=== PATIENT | female | born 1995 | race Caucasian/White ===

== ENCOUNTER 2017-11-13 08:28 | Day surgery (SDC) | payer BC ==
[~2017-11-13] VITALS: Ht 172.7 cm; Wt 72.6 kg
[~2017-11-13 08:28] MED LIST: ALBU90OI INH; AMOCLA600S; AMOX500 PO; CODACE30 PO; COUGH MED W/CODEINE; CRUTCH3 USE; FLUC150A PO; HYDACE5 PO; IBUP600 PO; LEVFLO500 PO; Monodox100 MG PO; NAPR500 PO; OXYACE5T PO; Percocet 5-3251 EACH PO; Prednisone20 MG PO; SERT25; SPACE CHAMBER1 EACH MC; SULTRIDS PO; Ultram50 MG PO; Zofran Odt8 MG SL
[2017-11-13 10:10] LABS: BASOPHILS ABSOLUTE AUTO 0.08 K/mm3 (0.00-0.23); BASOPHILS PERCENT AUTO 1 % (0-2); EOSINOPHILS ABSOLUTE AUTO 0.06 K/mm3 (0.00-0.68); EOSINOPHILS PERCENT AUTO 0 % (0-6); Hematocrit 39.5 % (33.0-51.0); Hemoglobin 13.6 g/dL (11.5-16.0); IMMATURE GRAN ABSOLUTE AUTO 0.06 K/mm3 (0.00-0.10); IMMATURE GRAN PERCENT AUTO 0 % (0-1); LYMPHOCYTES ABSOLUTE AUTO 1.38 K/mm3 (0.84-5.20); LYMPHOCYTES PERCENT AUTO 8 % (21-46); MONOCYTES ABSOLUTE AUTO 0.54 K/mm3 (0.16-1.47); MONOCYTES PERCENT AUTO 3 % (4-13); Mean Corpuscular HGB 31.2 pg (26.0-34.0); Mean Corpuscular HGB Conc 34.4 g/dL (31.5-36.5); Mean Corpuscular Volume 91 fL (80-100); Mean Platelet Volume 10.2 fL (9.1-12.4); NEUTROPHILS ABSOLUTE AUTO 14.24 K/mm3 (1.96-9.15); NEUTROPHILS PERCENT AUTO 87 % (41-73); Platelet Count 424 K/mm3 (150-400); RDW Coefficient Variation 12.8 % (11.7-14.2); RDW Standard Deviation 42.2 fL (35.1-46.3); Red Blood Cell Count 4.36 M/mm3 (3.80-5.20); White Blood Cell Count 16.36 K/mm3 (4.00-11.30)
[2017-11-13 10:25] LABS: Alanine Aminotransfer (ALT/SGP 27 U/L (12-78); Albumin, Blood 4.2 g/dL (3.4-5.0); Albumin/Globulin Ratio 1.1 (0.8-1.8); Alk Phos 45 U/L (50-136); Anion Gap 8 mmol/L (6-16); Aspartate Aminotrans (AST/SGOT 23 U/L (12-37); Bilirubin, Total 0.5 mg/dL (0.1-1.0); Blood Urea Nitrogen 8 mg/dL (8-24); Bun/Creatinine Ratio 13.5 (12.0-20.0); CO2, Blood 25 mmol/L (21-32); Calcium, Blood 9.1 mg/dL (8.5-10.1); Chloride, Blood 106 mmol/L (98-108); Creatinine, Blood 0.59 mg/dL (0.40-1.00); Globulin, Blood 3.9 g/dL (2.2-4.0); Glomerular Filtration Rate >60 (60-); Glucose, Blood 123 mg/dL (70-99); Potassium, Blood 4.1 mmol/L (3.5-5.5); Sodium, Blood 139 mmol/L (136-145); Total Protein, Blood 8.1 g/dL (6.4-8.2)
[2017-11-13] MEDS ORDERED: Percocet 5-3251 EACH PO (17:16)
[2017-11-13] MEDS ORDERED: IBUP800 PO (17:17)
[2017-11-13] MEDS ORDERED: PROM25 PO (17:17)
[2017-11-13] MEDS ORDERED: DOCU100 PO (17:24)
[2017-11-13] MEDS ORDERED: SIME80CH PO (17:24)
== END 2017-11-13 18:10 | disposition home or self-care (01) ==
LOC: ER 08:28 → ORSCMMR 11:49 → SURS 11:49 → ER 11:49 → SURS 12:20 → ORSCMMR 18:10
PROVIDERS: Emergency Medicine; Obstetrics & Gynecology
PROC: 10D17ZZ Extraction of Products of Conception, Retained, Via Natural or Artificial Opening (ICD-10-PCS; principal; 2017-11-13 14:00)
DX: O02.1 Missed abortion (principal)
CPT/HCPCS: 36415; 76801; 80053; 85025; 86900; 86901; 96361; 96374; 96375; 99285; J0295; J1100; J1885; J2060; J2210; J2250; J2405; J3010; J7030; J7120

== ENCOUNTER 2019-07-12 08:14 | Inpatient (IN) | payer SELFPAY ==
[~2019-07-12] VITALS: Ht 160 cm; Wt 83.5 kg
[~2019-07-12 08:14] MED LIST changes: +CYCL10 PO; +DOCU100 PO; +IBUP800 PO; +PROM25 PO; +SIME80CH PO
[2019-07-12] MEDS ORDERED: EXPECTA PRENAT1 EACH PR (09:13)
[2019-07-12] MEDS ORDERED: IRON150C PO (09:13)
[2019-07-12 09:23] LABS: BASOPHILS ABSOLUTE AUTO 0.05 K/mm3 (0.00-0.23); BASOPHILS PERCENT AUTO 0 % (0-2); EOSINOPHILS ABSOLUTE AUTO 0.12 K/mm3 (0.00-0.68); EOSINOPHILS PERCENT AUTO 1 % (0-6); Hematocrit 35.9 % (33.0-51.0); Hemoglobin 12.8 g/dL (11.5-16.0); IMMATURE GRAN ABSOLUTE AUTO 0.14 K/mm3 (0.00-0.10); IMMATURE GRAN PERCENT AUTO 1 % (0-1); LYMPHOCYTES ABSOLUTE AUTO 2.54 K/mm3 (0.84-5.20); LYMPHOCYTES PERCENT AUTO 15 % (21-46); MONOCYTES ABSOLUTE AUTO 0.87 K/mm3 (0.16-1.47); MONOCYTES PERCENT AUTO 5 % (4-13); Mean Corpuscular HGB 31.4 pg (26.0-34.0); Mean Corpuscular HGB Conc 35.7 g/dL (31.5-36.5); Mean Corpuscular Volume 88 fL (80-100); Mean Platelet Volume 9.5 fL (9.1-12.4); NEUTROPHILS ABSOLUTE AUTO 12.73 K/mm3 (1.96-9.15); NEUTROPHILS PERCENT AUTO 77 % (41-73); Platelet Count 631 K/mm3 (150-400); RDW Standard Deviation 38.7 fL (35.1-46.3); Red Blood Cell Count 4.08 M/mm3 (3.80-5.20); White Blood Cell Count 16.45 K/mm3 (4.00-11.30)
--- NOTE | 2019-07-12 17:44 | NUR ---
CONSULT. BABY HAD JUST FINISHED BF AND IS RESTING IN DADS ARMS. INSTRUCT/DEMO SELF EBM AND MOM ABLE TO RETURN DEMO. INSTRUCT IN CHANGES TO EXPECT DURING THE FIRST WEEK WITH BABY AND WITH FEEDINGS AND REFERRED TO BF BROCHURE AND BF BOOKLET FOR PHOTOS AND INFORMATION. QUESTIONS ANSWERED. LOVING WITH BABY.
[2019-07-13 05:51] LABS: BASOPHILS ABSOLUTE AUTO 0.03 K/mm3 (0.00-0.23); BASOPHILS PERCENT AUTO 0 % (0-2); EOSINOPHILS ABSOLUTE AUTO 0.13 K/mm3 (0.00-0.68); EOSINOPHILS PERCENT AUTO 1 % (0-6); Hematocrit 29.4 % (33.0-51.0); IMMATURE GRAN ABSOLUTE AUTO 0.13 K/mm3 (0.00-0.10); IMMATURE GRAN PERCENT AUTO 1 % (0-1); LYMPHOCYTES ABSOLUTE AUTO 2.39 K/mm3 (0.84-5.20); LYMPHOCYTES PERCENT AUTO 17 % (21-46); MONOCYTES ABSOLUTE AUTO 0.99 K/mm3 (0.16-1.47); MONOCYTES PERCENT AUTO 7 % (4-13); Mean Platelet Volume 9.5 fL (9.1-12.4); NEUTROPHILS ABSOLUTE AUTO 10.08 K/mm3 (1.96-9.15); NEUTROPHILS PERCENT AUTO 73 % (41-73); Platelet Count 511 K/mm3 (150-400); RDW Coefficient Variation 12.1 % (11.7-14.2); RDW Standard Deviation 40.3 fL (35.1-46.3); Red Blood Cell Count 3.23 M/mm3 (3.80-5.20); White Blood Cell Count 13.75 K/mm3 (4.00-11.30)
[2019-07-13 06:09] LABS: Mean Corpuscular Volume 91 fL (80-100)
--- NOTE | 2019-07-13 13:44 | NUR ---
1200 PLAN OF CARE DISCUSSED. PATIENT AWARE WE WILL RECHECK TSB ON BABY AT 1600 AND THEN DECIDE IF THEY WILL BE REQUIRED TO STAY
--- NOTE | 2019-07-13 17:28 | NUR ---
DISCHARGE HOME STABLE. NO QUESTIONS OR CONCERNS. VERBALZIES UNDERSTANDING OF DC INSTRUCTIONS AND FOLLOW UP APPOINTMENTS. CARING FOR SELF AND BABY INDEPENDANTLY.
== END 2019-07-13 17:30 | disposition home or self-care (01) | DRG 806 ==
LOC: BC 08:14 → OBS 08:14 → BC 08:53
PROVIDERS: ADMIT Nurse Practitioner Obstetrics & Gynecology
PROC: 10E0XZZ Delivery of Products of Conception, External Approach (ICD-10-PCS; principal; 2019-07-12)
PROC: 10907ZC Drainage of Amniotic Fluid, Therapeutic from Products of Conception, Via Natural or Artificial Opening (ICD-10-PCS; 2019-07-12)
PROC: 3E0R3BZ Introduction of Anesthetic Agent into Spinal Canal, Percutaneous Approach (ICD-10-PCS; 2019-07-12)
DX: O77.0 Labor and delivery complicated by meconium in amniotic fluid (principal); O99.12 Other diseases of the blood and blood-forming organs and certain disorders involving the immune mechanism complicating childbirth; Z37.0 Single live birth; O69.81X0 Labor and delivery complicated by cord around neck, without compression, not applicable or unspecified; O70.0 First degree perineal laceration during delivery; Z3A.37 37 weeks gestation of pregnancy; D47.3 Essential (hemorrhagic) thrombocythemia
CPT/HCPCS: 36415; 51702; 85025; 90686; J1885; J2210; J2590; J3010; J7120

== ENCOUNTER 2020-09-28 15:28 | Emergency (ER) | payer BC, OTHER ==
[~2020-09-28] VITALS: Ht 172.7 cm; Wt 83.9 kg
[~2020-09-28 15:28] MED LIST changes: +EXPECTA PRENAT1 EACH PR; +IRON150C PO
== END 2020-09-28 17:03 | disposition home or self-care (01) ==
LOC: ER 15:28
DX: S90.31XA Contusion of right foot, initial encounter (principal); F17.210 Nicotine dependence, cigarettes, uncomplicated; W20.8XXA Other cause of strike by thrown, projected or falling object, initial encounter
CPT/HCPCS: 73630; 99283-25

== ENCOUNTER → 2021-08-10 | Outpatient (CLI) | payer BC, OTHER | END | disposition home or self-care (01) | LOC: LAB SHORT 16:33 | DX: R82.90 Unspecified abnormal findings in urine (principal) | CPT/HCPCS: 87077; 87086; 87186 ==

== ENCOUNTER → 2021-10-20 | Outpatient (CLI) | payer OTHER | END | disposition home or self-care (01) | LOC: LAB SHORT 15:54 → LAB 15:54 | DX: R82.90 Unspecified abnormal findings in urine (principal) | CPT/HCPCS: 87077; 87086; 87186 ==

== ENCOUNTER → 2021-11-12 | Outpatient (CLI) | payer OTHER | END | disposition home or self-care (01) | LOC: LAB 16:16 → LAB SHORT 16:16 | DX: O28.9 Unspecified abnormal findings on antenatal screening of mother (principal); Z3A.36 36 weeks gestation of pregnancy | CPT/HCPCS: 87077; 87081; 87086; 87150; 87186 ==

== ENCOUNTER 2021-12-10 10:58 | Inpatient (IN) | payer OTHER ==
[~2021-12-10] VITALS: Ht 172.7 cm; Wt 100.5 kg
[2021-12-10 11:35] LABS: BASOPHILS ABSOLUTE AUTO 0.02 K/mm3 (0.00-0.23); BASOPHILS PERCENT AUTO 0 % (0-2); EOSINOPHILS ABSOLUTE AUTO 0.18 K/mm3 (0.00-0.68); EOSINOPHILS PERCENT AUTO 2 % (0-6); Hematocrit 32.5 % (33.0-51.0); Hemoglobin 11.1 g/dL (11.5-16.0); IMMATURE GRAN ABSOLUTE AUTO 0.04 K/mm3 (0.00-0.10); IMMATURE GRAN PERCENT AUTO 0 % (0-1); LYMPHOCYTES ABSOLUTE AUTO 2.03 K/mm3 (0.84-5.20); LYMPHOCYTES PERCENT AUTO 21 % (21-46); MONOCYTES ABSOLUTE AUTO 0.59 K/mm3 (0.16-1.47); MONOCYTES PERCENT AUTO 6 % (4-13); Mean Corpuscular HGB 30.2 pg (26.0-34.0); Mean Corpuscular HGB Conc 34.2 g/dL (31.5-36.5); Mean Corpuscular Volume 89 fL (80-100); Mean Platelet Volume 10.7 fL (9.1-12.4); NEUTROPHILS PERCENT AUTO 70 % (41-73); Platelet Count 326 K/mm3 (150-400); RDW Coefficient Variation 13.2 % (11.7-14.2); RDW Standard Deviation 42.7 fL (35.1-46.3); Red Blood Cell Count 3.67 M/mm3 (3.80-5.20); White Blood Cell Count 9.66 K/mm3 (4.00-11.30)
[2021-12-10] MEDS ORDERED: PRENATAL TABLE1 EAC2 PO (11:51)
[2021-12-10] MEDS ORDERED: IRON18 MG PO (11:51)
[2021-12-10] MEDS ORDERED: ONDA4 PO (11:51)
--- NOTE | 2021-12-10 19:00 | NUR ---
ASSUMED PT CARE, PT IN BED, HOLDING NB, NB ROOTING SUCKING FINGER, ENCOURGED MOM TO PUT NB BACK TO BR, WHICH SHE DID. DENIES PAIN AT THIS TIME. LEGS STARTING TO FEEL BACK TO NORMAL. WILL GET PT UP TO SHOWER SHORTLY. PT'S SO OUTSIDE ROOM AT WINDOW WITH THEIR 1 Y.O. PT'S MOM IN ROOM.
--- NOTE | 2021-12-10 21:00 | NUR ---
REPORT TO LANCE VILLA. PT AWARE, JUST FINISHED PATERNITY PAPERWORK. NO ACUTE CHANGES.
[2021-12-11 06:26] LABS: BASOPHILS ABSOLUTE AUTO 0.06 K/mm3 (0.00-0.23); BASOPHILS PERCENT AUTO 1 % (0-2); EOSINOPHILS ABSOLUTE AUTO 0.27 K/mm3 (0.00-0.68); EOSINOPHILS PERCENT AUTO 2 % (0-6); Hematocrit 28.6 % (33.0-51.0); Hemoglobin 9.5 g/dL (11.5-16.0); IMMATURE GRAN ABSOLUTE AUTO 0.05 K/mm3 (0.00-0.10); IMMATURE GRAN PERCENT AUTO 0 % (0-1); LYMPHOCYTES ABSOLUTE AUTO 2.68 K/mm3 (0.84-5.20); LYMPHOCYTES PERCENT AUTO 22 % (21-46); MONOCYTES ABSOLUTE AUTO 0.83 K/mm3 (0.16-1.47); MONOCYTES PERCENT AUTO 7 % (4-13); Mean Corpuscular HGB 30.1 pg (26.0-34.0); Mean Corpuscular HGB Conc 33.2 g/dL (31.5-36.5); Mean Corpuscular Volume 91 fL (80-100); Mean Platelet Volume 10.9 fL (9.1-12.4); NEUTROPHILS ABSOLUTE AUTO 8.45 K/mm3 (1.96-9.15); NEUTROPHILS PERCENT AUTO 69 % (41-73); Platelet Count 301 K/mm3 (150-400); RDW Coefficient Variation 13.1 % (11.7-14.2); Red Blood Cell Count 3.16 M/mm3 (3.80-5.20); White Blood Cell Count 12.34 K/mm3 (4.00-11.30)
--- NOTE | 2021-12-11 17:47 | NUR ---
PT DISCHARGED FROM HOSPITAL TO HOME. DISCHARGE INSTRUCTIONS GIVEN. NO QUESTIONS OR CONCERNS AT THIS TIME.
== END 2021-12-11 17:30 | disposition home or self-care (01) | DRG 807 ==
LOC: OBS 10:58 → BC 10:58 → OBS 11:11 → BC 11:11
PROVIDERS: ADMIT Obstetrics & Gynecology
PROC: 10E0XZZ Delivery of Products of Conception, External Approach (ICD-10-PCS; principal; 2021-12-10)
PROC: 3E033VJ Introduction of Other Hormone into Peripheral Vein, Percutaneous Approach (ICD-10-PCS; 2021-12-10)
DX: O99.324 Drug use complicating childbirth (principal); Z37.0 Single live birth; O99.214 Obesity complicating childbirth; F12.90 Cannabis use, unspecified, uncomplicated; Z67.10 Type A blood, Rh positive; Z88.1 Allergy status to other antibiotic agents; Z3A.38 38 weeks gestation of pregnancy; Z79.899 Other long term (current) drug therapy; Z87.891 Personal history of nicotine dependence
CPT/HCPCS: 36415; 85025; 86850; 86900; 86901; A9270; J1885; J2001; J2590; J3010; J7120